=== PATIENT | female | born 2000 | race Caucasian/White ===

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

== ENCOUNTER 2022-03-26 19:06 | Outpatient (REF) | payer BC, MEDICAID, SELFPAY ==
[2022-03-28 11:23] LABS: COVID-19 RT-PCR UVMMC Result Negative (Negative)
== END 2022-03-26 19:07 | disposition home or self-care (01) ==
LOC: NCHCN 19:06
PROVIDERS: PCP Nurse Practitioner Family; Visit Provider Nurse Practitioner Family
DX: Z20.822 Contact with and (suspected) exposure to COVID-19 (principal); J06.9 Acute upper respiratory infection, unspecified
CPT/HCPCS: U0003

== ENCOUNTER 2022-07-09 13:41 | Outpatient (REF) | payer MEDICAID, SELFPAY ==
[2022-07-09 14:37] LABS: Anion Gap 8.2 mmol/L (3-11); CO2 25.8 mmol/L (21.0-32.0); Chloride 106 mmol/L (98-107); Potassium 4.6 mmol/L (3.5-5.1); Sodium 140 mmol/L (136-145)
== END 2022-07-09 13:42 | disposition home or self-care (01) ==
LOC: NCHCN 13:41
PROVIDERS: PCP Nurse Practitioner Family; Visit Provider Family Medicine
DX: E87.6 Hypokalemia (principal)
CPT/HCPCS: 80051

== ENCOUNTER 2024-04-02 16:52 | Outpatient (REF) | payer OTHER, SELFPAY ==
[2024-04-02 21:38] LABS: ESR 18 mm/hr (0-20)
[2024-04-02 21:39] LABS: HCT 43.9 % (36.0-46.0); HGB 14.6 g/dL (11.2-15.7); MCH 27.9 pg (27.0-33.0); MCHC 33.3 % (32.0-36.0); MCV 84 fL (80-95); MPV 8.9 fL (8.0-11.0); Platelet Count 362 10^3/uL (130-400); RBC 5.24 10^6/uL (3.93-5.22); RDW 12.8 % (11.7-14.6); RDW-SD 38.8 fL; WBC 14.33 10^3/uL (4.4-10.8)
[2024-04-02 21:58] LABS: ALT 25 U/L (14-59); AST 24 U/L (15-37); Albumin 3.6 g/dL (3.4-5.0); Alkaline Phosphatase 131 U/L (46-116); Anion Gap 8.4 mmol/L (3-11); BUN 12 mg/dL (7-18); Bilirubin, Total 0.28 mg/dL (0.2-1.0); C-Reactive Protein 3.24 mg/dL (<or=0.5); CO2 25.6 mmol/L (21.0-32.0); CREATININE 0.9 mg/dL (0.55-1.02); Calcium 9.5 mg/dL (8.5-10.1); Chloride 105 mmol/L (98-107); Estimated GFR 93.28 (mL/min/1.73m2); Glucose 96 mg/dL (74-106); Potassium 4.2 mmol/L (3.5-5.1); Sodium 139 mmol/L (136-145); Total Protein 8.5 g/dL (6.4-8.2)
== END 2024-04-02 16:53 | disposition home or self-care (01) ==
LOC: NCHCN 16:52
PROVIDERS: PCP Nurse Practitioner Family; Visit Provider Internal Medicine
DX: R63.5 Abnormal weight gain (principal); R10.9 Unspecified abdominal pain
CPT/HCPCS: 80053; 85027; 85652; 84443; 86140

== ENCOUNTER 2024-04-21 21:43 | Outpatient (REF) | payer OTHER, SELFPAY ==
[2024-04-21 21:50] LABS: Abs Immature Grans 0.03 10^3/uL (0.0-0.06); Absolute Basophil Count 0.07 10^3/uL (0.0-0.2); Absolute Eosinophil Count 0.45 10^3/uL (0.0-0.7); Absolute Lymphocyte Count 2.45 10^3/uL (1.2-3.4); Absolute Monocyte Count 0.51 10^3/uL (0.1-0.8); Absolute Neutrophil Count 6.52 10^3/uL (1.2-6.7); Basophils % 0.7 %; Eosinophils % 4.5 %; HCT 43.3 % (36.0-46.0); HGB 14.1 g/dL (11.2-15.7); Immature Grans % 0.3 %; Lymphocytes % 24.4 %; MCH 28.2 pg (27.0-33.0); MCHC 32.6 % (32.0-36.0); MCV 87 fL (80-95); MPV 8.9 fL (8.0-11.0); Monocytes % 5.1 %; Platelet Count 328 10^3/uL (130-400); RDW 13.2 % (11.7-14.6); RDW-SD 41.3 fL; WBC 10.03 10^3/uL (4.4-10.8)
[2024-04-21 21:52] LABS: ESR 15 mm/hr (0-20)
[2024-04-21 22:02] LABS: C-Reactive Protein < 0.50 mg/dL (<or=0.5)
[2024-04-21 22:12] LABS: ALT 30 U/L (14-59); AST 23 U/L (15-37); Albumin 3.5 g/dL (3.4-5.0); Alkaline Phosphatase 116 U/L (46-116); Anion Gap 9.2 mmol/L (3-11); BUN 11 mg/dL (7-18); Bilirubin, Total 0.27 mg/dL (0.2-1.0); CO2 25.8 mmol/L (21.0-32.0); CREATININE 1.1 mg/dL (0.55-1.02); Calcium 9.1 mg/dL (8.5-10.1); Chloride 105 mmol/L (98-107); Estimated GFR 73.31 (mL/min/1.73m2); Glucose 142 mg/dL (74-106); Potassium 3.9 mmol/L (3.5-5.1); Sodium 140 mmol/L (136-145); TSH 1.22 uIU/mL (0.36-3.74); Total Protein 7.9 g/dL (6.4-8.2)
[2024-04-23 12:15] LABS: Lyme Ab w Rflx to Lyme Confirm Negative (Negative)
[2024-04-26 00:19] LABS: Anaplasma phagocytophilum Negative (Negative); B. miyamotoi PCR Negative (Negative); Babesia divergens/MO-1 Negative (Negative); Babesia duncani Negative (Negative); Babesia microti Negative (Negative); Ehrlichia chaffeensis Negative (Negative); Ehrlichia ewingii/canis Negative (Negative); Ehrlichia muris eauclairensis Negative (Negative)
== END 2024-04-21 21:44 | disposition home or self-care (01) ==
LOC: NCHCN 21:43
PROVIDERS: PCP Nurse Practitioner Family; Visit Provider Family Medicine
DX: R10.9 Unspecified abdominal pain (principal); M25.50 Pain in unspecified joint; R63.5 Abnormal weight gain
CPT/HCPCS: 80053; 85027; 85652; 87798; 84443; 85025; 86140; 86618

== ENCOUNTER 2024-12-14 15:19 | Outpatient (REF) | payer OTHER, SELFPAY ==
[2024-12-14 16:57] LABS: Vitamin D 25 Total 13 ng/mL (30-100)
== END 2024-12-14 15:20 | disposition home or self-care (01) ==
LOC: NCHCN 15:19
PROVIDERS: PCP Nurse Practitioner Family; Visit Provider Family Medicine
DX: E55.9 Vitamin D deficiency, unspecified (principal)
CPT/HCPCS: 82306